=== PATIENT | male | born 1940 | race African-American/Black ===

== ENCOUNTER 2017-02-21 18:57 | Observation (INO) | payer OTHER, BC ==
[~2017-02-21] VITALS: Ht 188 cm; Wt 58.0 kg
[2017-02-21 20:22] LABS: EOSINOPHIL (%) 0.8 % (0-5); HEMATOCRIT 36.8 % (38.0-50.0); IMMATURE GRANULOCYTE (%) 0.4 % (0.0-0.7); INSTRUMENT ABS NEUTROPHIL CT 3.1 K/uL; LYMPHOCYTE COUNT 1.1 K/uL (1.0-2.8); MCH 31.7 PG (29.0-34.0); MCHC 33.7 G/DL (30.0-36.0); MCV 94.1 FL (86-99); MEAN PLAT.VOLUME 10.7 uM^3 (9.0-12.4); MONOCYTE (%) 8.9 % (3-12); MONOCYTE COUNT 0.4 K/uL (0-0.8); NEUTROPHIL (%) 66.8 % (45-76); NEUTROPHIL COUNT 3.1 K/uL (1.8-6.4); PLATELET COUNT 161 K/uL (156-360); RBC DIS.WIDTH-SD 44.8 % (39-53); RED BLOOD COUNT 3.91 M/uL (4.00-5.50); WHITE BLOOD COUNT 4.7 K/uL (4.1-10.2)
[2017-02-21 20:30] LABS: CHLORIDE 102 mEq/L (99-109); POTASSIUM 4.1 mEq/L (3.7-5.4); SODIUM 140 mEq/L (136-147)
[2017-02-21 20:32] LABS: GLUCOSE 107 mg/dL (70-99)
[2017-02-21 20:33] LABS: ANION GAP 7 MEQ/L (2-14)
[2017-02-21 20:34] LABS: TOTAL BILIRUBIN 0.3 mg/dL (0.0-1.0)
[2017-02-21 20:36] LABS: ALKALINE PHOSPHATASE 91 IU/L (3-129); GFR ESTIMATE (CALCULATED) > 59 mL/min/
[2017-02-21 20:37] LABS: UREA NITROGEN (BUN) 12 mg/dL (9-23)
[2017-02-21 20:39] LABS: CREATINE KINASE 125 IU/L (1-294); TOTAL CK 125 IU/L (1-294)
[2017-02-21 20:42] LABS: TROP-I INTERPRETATION NEGATIVE; TROPONIN-I < 0.01 ng/mL (0.0-0.30)
[2017-02-21 20:45] LABS: CK-MB 0.6 ng/mL (0.0-4.9)
[2017-02-21 22:02] LABS: ADD MIUA? YES; BILIRUBIN NEGATIVE; BLOOD NEGATIVE; COLOR YELLOW ((YELLOW)); GLUCOSE (STRIP) NEGATIVE; KETONES NEGATIVE; LEUKOCYTES NEGATIVE; NITRITE NEGATIVE; PROTEIN (STRIP) 30; SPECIFIC GRAVITY 1.012 (1.000-1.030); UROBILINOGEN 0.2 MG/DL (0.2-1.0)
[2017-02-21 22:17] LABS: BACTERIA 2+ /HPF; CASTS NONE SEEN /LPF; CRYSTALS PRESENT; EPITHELIAL CELLS RARE /HPF; MUCUS RARE /LPF; RED BLOOD CELLS 0-5 /HPF (0-5); UCUL ADDED? NO; WHITE BLOOD CELLS 0-5 /HPF (0-5)
[2017-02-21] MEDS ORDERED: FLORINEF ACETA0.1 MG PO (23:24)
[2017-02-21] MEDS ORDERED: ATIVAN2 MG PO (23:25)
[2017-02-21] MEDS ORDERED: LO-DOSE ASPIRIN81 M2 PO (23:25)
[2017-02-21] MEDS ORDERED: DESYREL100 MG PO (23:26)
[2017-02-21] MEDS ORDERED: EXELON PATCH9.5 MG TD (23:26)
[2017-02-21] MEDS ORDERED: PROTONIX40 MG PO (23:27)
[2017-02-21] MEDS ORDERED: NORVASC10 MG PO (23:28)
[2017-02-21] MEDS ORDERED: NAMENDA XR28 MG PO (23:28)
[2017-02-21] MEDS ORDERED: SEROQUEL100 MG PO (23:29)
[2017-02-21] MEDS ORDERED: VITAMIN B-12500 MC5 SL (23:30)
[2017-02-21] MEDS ORDERED: STOOL SOFTENER100 MG PO (23:30)
[2017-02-21] MEDS ORDERED: LISINOPRIL40 MG PO (23:31)
[2017-02-21] MEDS ORDERED: HALOPERIDOL0.5 MG PO (23:31)
[2017-02-21] MEDS ORDERED: PRAVACHOL40 MG PO (23:31)
[2017-02-21] MEDS ORDERED: CITRATE OF MAG296 ML PO (23:32)
[2017-02-22 02:13] VITALS: BP 135/73
[2017-02-22 06:33] VITALS: BP 156/94
[2017-02-22 06:37] LABS: EOSINOPHIL (%) 2.2 % (0-5); EOSINOPHIL COUNT 0.1 K/uL (0-0.3); HEMATOCRIT 35.5 % (38.0-50.0); IMMATURE GRANULOCYTE (%) 0.2 % (0.0-0.7); INSTRUMENT ABS NEUTROPHIL CT 2.5 K/uL; MCH 31.7 PG (29.0-34.0); MCHC 33.8 G/DL (30.0-36.0); MCV 93.7 FL (86-99); MEAN PLAT.VOLUME 11.4 uM^3 (9.0-12.4); MONOCYTE COUNT 0.5 K/uL (0-0.8); NEUTROPHIL COUNT 2.5 K/uL (1.8-6.4); PLATELET COUNT 159 K/uL (156-360); RBC DIS.WIDTH-CV 13.1 % (11.8-14.6); RED BLOOD COUNT 3.79 M/uL (4.00-5.50)
[2017-02-22 07:21] LABS: ALKALINE PHOSPHATASE 75 IU/L (3-129); ANION GAP 8 MEQ/L (2-14); CHLORIDE 103 MEQ/L (99-109); GFR ESTIMATE (CALCULATED) > 59 mL/min/; GLUCOSE 81 mg/dL (70-99); POTASSIUM 3.9 MEQ/L (3.7-5.4); SAMPLE HEMOLYSIS CHECK 0; SAMPLE ICTERIC CHECK 0; SAMPLE LIPEMIA CHECK 0; SODIUM 141 MEQ/L (136-147); TOTAL BILIRUBIN 0.4 MG/DL (0.0-1.0); UREA NITROGEN (BUN) 10 mg/dL (9-23)
== END 2017-02-22 14:15 | disposition home or self-care (01) ==
LOC: EME 18:57 → EDOF 02-22 00:35 → 5WEST 02-22 01:50
PROVIDERS: Emergency Medicine; Internal Medicine
DX: R55 Syncope and collapse (principal); N17.9 Acute kidney failure, unspecified; G30.1 Alzheimer's disease with late onset; F02.81 Dementia in other diseases classified elsewhere, unspecified severity, with behavioral disturbance; I10 Essential (primary) hypertension; E78.00 Pure hypercholesterolemia, unspecified; K21.9 Gastro-esophageal reflux disease without esophagitis; Z79.82 Long term (current) use of aspirin
CPT/HCPCS: 70450; 71010; 80053; 81003; 82550; 82553; 83880; 84484; 85025; 87086; 93005; 99281; 99285; G0378; G8978 GP CK; G8979 CJ; G8987 GO CM; G8988 GO CJ; J1644; J7030

== ENCOUNTER 2017-02-24 17:47 | Emergency (ER) | payer OTHER, BC ==
[~2017-02-24] VITALS: Ht 190.5 cm; Wt 57.1 kg
[~2017-02-24 17:47] MED LIST: ATIVAN2 MG PO; CITRATE OF MAG296 ML PO; DESYREL100 MG PO; EXELON PATCH9.5 MG TD; FLORINEF ACETA0.1 MG PO; HALOPERIDOL0.5 MG PO; LISINOPRIL40 MG PO; LO-DOSE ASPIRIN81 M2 PO; NAMENDA XR28 MG PO; NORVASC10 MG PO; PRAVACHOL40 MG PO; PROTONIX40 MG PO; SEROQUEL100 MG PO; STOOL SOFTENER100 MG PO; VITAMIN B-12500 MC5 SL
[2017-02-24 18:49] LABS: EOSINOPHIL (%) 0.5 % (0-5); HEMATOCRIT 38.3 % (38.0-50.0); IMMATURE GRANULOCYTE (%) 0.2 % (0.0-0.7); INSTRUMENT ABS NEUTROPHIL CT 2.4 K/uL; LYMPHOCYTE COUNT 1.4 K/uL (1.0-2.8); MCH 31.9 PG (29.0-34.0); MCHC 33.7 G/DL (30.0-36.0); MCV 94.8 FL (86-99); MEAN PLAT.VOLUME 11.3 uM^3 (9.0-12.4); MONOCYTE (%) 9.4 % (3-12); MONOCYTE COUNT 0.4 K/uL (0-0.8); NEUTROPHIL COUNT 2.4 K/uL (1.8-6.4); PLATELET COUNT 170 K/uL (156-360); RBC DIS.WIDTH-SD 45.3 % (39-53); RED BLOOD COUNT 4.04 M/uL (4.00-5.50); WHITE BLOOD COUNT 4.2 K/uL (4.1-10.2)
[2017-02-24 19:04] LABS: CHLORIDE 103 mEq/L (99-109); SODIUM 138 mEq/L (136-147)
[2017-02-24 19:07] LABS: ANION GAP 13 MEQ/L (2-14)
[2017-02-24 19:08] LABS: TOTAL BILIRUBIN 0.3 mg/dL (0.0-1.0)
[2017-02-24 19:09] LABS: ALKALINE PHOSPHATASE 94 IU/L (3-129)
[2017-02-24 19:10] LABS: GFR ESTIMATE (CALCULATED) > 59 mL/min/
[2017-02-24 19:11] LABS: UREA NITROGEN (BUN) 13 mg/dL (9-23)
[2017-02-24 19:13] LABS: GLUCOSE 108 mg/dL (70-99); POTASSIUM 4.8 mEq/L (3.7-5.4)
[2017-02-24 19:16] LABS: TROP-I INTERPRETATION NEGATIVE; TROPONIN-I 0.01 ng/mL (0.0-0.30)
[2017-02-24 19:28] LABS: ADD MIUA? YES; BILIRUBIN NEGATIVE; BLOOD NEGATIVE; COLOR YELLOW ((YELLOW)); GLUCOSE (STRIP) NEGATIVE; KETONES NEGATIVE; LEUKOCYTES NEGATIVE; NITRITE NEGATIVE; PROTEIN (STRIP) 30; UROBILINOGEN 0.2 MG/DL (0.2-1.0)
[2017-02-24 19:40] LABS: BACTERIA NONE SEEN /HPF; EPITHELIAL CELLS RARE /HPF; GRANULAR CASTS 0-5 /LPF; MUCUS TRACE /LPF; RED BLOOD CELLS 0-5 /HPF (0-5); UCUL ADDED? NO; WHITE BLOOD CELLS 0-5 /HPF (0-5)
[2017-02-24 20:42] VITALS: BP 119/75
== END 2017-02-24 20:42 | disposition home or self-care (01) ==
LOC: EME → EDBD 17:47 → EME 17:47 → EDSEX 17:47 → EME 20:42
PROVIDERS: Emergency Medicine
DX: E86.0 Dehydration (principal); R55 Syncope and collapse; G30.9 Alzheimer's disease, unspecified; F02.80 Dementia in other diseases classified elsewhere, unspecified severity, without behavioral disturbance, psychotic disturbance, mood disturbance, and anxiety; I10 Essential (primary) hypertension; E11.9 Type 2 diabetes mellitus without complications; K21.9 Gastro-esophageal reflux disease without esophagitis; Z79.82 Long term (current) use of aspirin; Z87.442 Personal history of urinary calculi
CPT/HCPCS: 71010; 80053; 81003; 83605; 84484; 85025; 87040; 99281; 99285; J7030